=== PATIENT | female | born 1940 | race Caucasian/White ===

== ENCOUNTER 2016-08-13 13:48 | Outpatient (CLI) | payer MEDICARE, BC ==
[~2016-08-13] VITALS: Ht 166.4 cm; Wt 75.2 kg
[2016-08-13 13:53] VITALS: BP 181/86; PULSE 81; RESP 18; Ht 166.4 cm; Wt 75.2 kg
[2016-08-13] MEDS ORDERED: OMEG-135 PO (14:45)
[2016-08-13] MEDS ORDERED: [UNRECOGNIZED DRUG - CODE] IJ (14:45)
[2016-08-13] MEDS ORDERED: UMEC1DIS INHALATION (14:45)
[2016-08-13] MEDS ORDERED: APIX2.5T PO (14:45)
[2016-08-13] MEDS ORDERED: CITR473S3 PO (14:45)
[2016-08-13] MEDS ORDERED: D-MA1POW MC (14:45)
[2016-08-13] MEDS ORDERED: PARI1CAP7 PO (14:45)
[2016-08-13] MEDS ORDERED: MULT1CAP20 PO (14:45)
[2016-08-13] MEDS ORDERED: [UNRECOGNIZED DRUG - OTHER] IV* (14:45)
[2016-08-13] MEDS ORDERED: CHOL2400 MC (14:45)
[2016-08-13] MEDS ORDERED: LACT1CAP57 PO (14:45)
[2016-08-13] MEDS ORDERED: LOSA25TA5 PO (14:45)
[2016-08-13] MEDS ORDERED: RANI150T5 PO (14:45)
[2016-08-13] MEDS ORDERED: CHOL100062 PO (14:45)
[2016-08-13] MEDS ORDERED: MONT10TA21 PO (14:45)
[2016-08-13] MEDS ORDERED: MAGN400C3 PO (14:45)
[2016-08-13] MEDS ORDERED: [UNRECOGNIZED DRUG - CODE] IV (14:45)
[2016-08-13] MEDS ORDERED: ASC250 PO (14:45)
[2016-08-13] MEDS ORDERED: CYAN500T46 PO (14:45)
[2016-08-13] MEDS ORDERED: ATOR10TA65 PO (14:45)
[2016-08-13] MEDS ORDERED: ALBU2.5V3 NEB (14:45)
[2016-08-13] MEDS ORDERED: LEVO125T PO (14:45)
[2016-08-13] MEDS ORDERED: METO50TA16 PO (14:45)
[2016-08-13] MEDS ORDERED: ZOF8 PO (14:45)
--- NOTE | 2016-08-13 18:26 | CONS ---
[facility] INITIAL OUTPATIENT CONSULTATION NOTE DATE OF CONSULTATION: 08/13/2016 Place of Service: 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 There is a slight chance that the liver lesions could be from melanoma and therefore evaluation with S100 marker and other pathologic markers to rule this possibility out may be helpful, although they do not change my overall recommendations. Patient unfortunately has clinical picture that will not be helped with surgical intervention in my opinion. In order to render her tumor free of the known disease, the patient would have to undergo a Whipple procedure, as well as a right hepatectomy. These 2 operations are certainly difficult operations to recover from individually and together they are often extremely morbid and should only be used in a very selective group of patients, which the patient does not qualify for. In addition, there is no data that supports aggressive surgical resection of stage IV ampullary tumor. If this mass is coming from other locations such as a melanoma, again, the indication would not be therefore aggressive surgical resection. Her colon has been evaluated fairly adequately and we believe that she does not have colon malignancy which would be the only situation in her case that would warrant aggressive surgical resection. The ampullary mass which is unfortunately positive for malignancy makes this a difficult clinical picture. I spent quite a bit of time with the patient and her and held a long and alan discussion about all the available data and my impression and the reasons behind my impressions and recommendations. I answered the patient's and her 's questions to the best of my ability and I believe that they understand and agree with the plan. With above assessment I have recommended the followin. Multidisciplinary Tumor Board presentation. 2. Evaluation of liver biopsy for S-100 and other markers to rule out melanoma (? perhaps done in the past, in which case we would get records to verify). 3. Continue systemic chemotherapy. 4. Possible role for local therapy to the liver in the form of transarterial chemoembolization or radioembolization. This should be reserved more as a palliative option and at this time, I do not believe that the patient will have significant benefit of this, given her multiple issues that are at hand. Certainly her renal insufficiency also complicates the matter for both further imaging with contrast as well as for local therapy to the liver. 5. I recommended against aggressive surgical intervention. 6. Consideration for clinical trial. Thank you again for allowing us to participate in the care of this very pleasant lady and her wonderful family. If there are any questions, please feel free to contact me at [phone]. 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 COMORBIDITIES: 1. History of melanoma left lower extremity with left groin lymph node dissection on 12/07/[address] at [facility]; stage IIA, 2.3 mm, nonulcerated on repeat resection 01/23/2004. An initial depth was 1.55 mm on the left calf 11/2003. 2. Breast cancer status post left breast lumpectomy 04/03/1997 with sentinel lymph node and breast tumor margin re-resection in 04/28/1997, status post chemotherapy with Adriamycin and Cytoxan 05/1997 to 07/1997 and radiation from 08/1997 to 09/1997. 3. A second breast cancer with needle biopsy proven breast cancer 10/13/2005; status post bilateral mastectomy 11/25/[address] Mee alfredo at [facility] followed by Taxotere and carboplatin therapy 01/2006 to 04/2006, complicated by infected port as well as blood clot that required Coumadin. Restart of chemotherapy with Xeloda 06/2006 to 08/2006. 4. Positive BRCA1 testing 07/29/2007. 5. Status post hysterectomy. 6. Hospitalization for blood clot in right femoral vein 12/2006. 7. Dialysis 12/2006 (temporary). 8. Renal insufficiency with creatinine of 4.5 in 12/2006, baseline 2.5 to 3.9. 9. Status post removal of melanoma from the left forearm 07/29/2011. 10. Recurrent blood clot in left leg 10/15/2013. 11. Status post negative colonoscopy 02/27/2015. 12. PET CT showing possible liver lesions 02/12/2015 as well as possible colon and ureteral involvement (later proved not to be the case). 13. 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 14. Status post FOLFOX treatment 04/2016. 15. Ampullary mass status post endoscopic biopsy 05/02/2016 with negative findings, repeat endoscopic ultrasound-guided biopsy 07/14/2016 showing malignancy. 16. Status post PillCam 05/07/2016 that did not add more to the findings. 17. Status post MOHS of the right wrist 06/21/2009 showing squamous cell process. 18. Status post right eye cataract surgery 05/03/2008. 19. Removal 1 liter of fluid from pericardial space 08/21/2006 in [facility]. 20. BMI of 27.2. 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 She has a very complex past medical and surgical history as outlined above. Currently, she reports no major abdominal pain and no difficulty with eating. No nausea or vomiting. No significant change in weight and perhaps a 10 pound weight loss over the last 6 months to a year. No difficulties with blood in the stool or urine. Appetite is fair. She has had genetic counseling at [facility] and there have been reportedly more extensive testing done and did not identify any more mutations other than the BRCA1 gene. Patient did not know of any other recommendations for altered screening for her family. ALLERGIES: LATEX, SULFA, without known reactions. MEDICATIONS: All recorded carefully in the electronic record system and reviewed by me. SOCIAL HISTORY: The patient lives with her family. She does not report any smoking, drinking, or intravenous drug use. She has 4 children with her . FAMILY HISTORY: As mentioned, BRCA1 mutation and throughout her family, including her daughters. REVIEW OF SYSTEMS: Other than the above-mentioned, there are no other pertinent positives or pertinent negatives in a complete 14-point review of systems. PHYSICAL EXAMINATION: GENERAL: The patient appears to be a very pleasant lady of non- descent, appearing stated age, sitting in a chair comfortably and in no acute distress. BMI is 27.2. VITAL SIGNS: Temperature 98.2, blood pressure 181/86, pulse 81, respiratory rate 18, pulse oximetry 95% on room air. HEENT: Normocephalic and atraumatic. Extraocular muscles and hearing are grossly intact bilaterally and symmetrically. Sclerae are nonicteric. Oral cavity is clear; oral mucosa appeared to be pink and moist. Dentition: fair to poor. NECK: Supple. There is no lymphadenopathy or JVD. There is no submental, submandibular or supraclavicular lymphadenopathy. CHEST: Rises symmetrically with each breath; patient is breathing comfortably. There are no audible wheezes, rales or rhonchi on the gross exam. HEART: Pulse is regular and palpable on the right wrist. Capillary refill was normal. Carotid pulses are palpable bilaterally and symmetrically in the neck. EXTREMITIES: The patient has a punctate area of a surgical scar on the medial aspect of the left leg, corresponding to the area of her resection for melanoma. She also has several scars corresponding to other resections on her skin. Abdomen appears to be soft and nondistended. The incisions are healed well and there is no evidence of erythema, edema, discharge or hernia. ABDOMEN: Abdomen is soft, nontender and nondistended. There are no peritoneal signs or guarding. No evidence of ascites, organomegaly, caput medusae, engorged subcutaneous veins, or other abnormalities. Incisions clean, dry, intact without any obvious erythema, edema, discharge or hernia. SKIN: Appears to be pink and feels warm to touch. NEUROLOGIC: Awake, alert, and follows commands appropriately. LABORATORY DATA: Dated 07/2016: Creatinine 2.5, albumin 3.9, alkaline phosphatase 162, AST 37, ALT 35, total bilirubin 0.6, platelets 111, hemoglobin 11.5. CA-125 11.7. CEA 06/2016 was 36.8. CA 27-29: 31.1. IMAGING: The patient has had numerous images which mainly include PET CT without contrast due to her renal insufficiency. The latest of these is dated 06/26/2016 where 4 liver lesions are seen as on the prior exam, but demonstrated minimal uptake, indicating efficacy of treatment. There is new hypermetabolic lesion in the medial right lobe of the liver more likely representing uptake in the duodenum with missed registration. This appears similar to the prior exam and question tumor and in the duodenum. Postsurgical changes are noted and small to moderate hiatal hernia is present. Note that I personally reviewed all the available and pertinent images and I agree in general with their overall reported findings. Dictated By: ENZO ESCALANTE/NTS Conf#: [id number] DID#: [id number] CC: Arya Castillo MD; GIBSON VILLA MD;*EndCC* MTDD
== END 2016-08-13 16:55 | disposition home or self-care (01) ==
LOC: HPC 13:48
PROVIDERS: ATTEND Transplant Surgery
DX: R19.00 Intra-abdominal and pelvic swelling, mass and lump, unspecified site (principal); K76.9 Liver disease, unspecified; K44.9 Diaphragmatic hernia without obstruction or gangrene; Z85.3 Personal history of malignant neoplasm of breast; Z85.820 Personal history of malignant melanoma of skin; Z90.13 Acquired absence of bilateral breasts and nipples; Z90.710 Acquired absence of both cervix and uterus; Z88.2 Allergy status to sulfonamides
CPT/HCPCS: G0463